=== PATIENT | male | born 1970 | race Caucasian/White ===

== ENCOUNTER → 2018-05-10 15:17 | Outpatient (CLI) | payer OTHER, SELFPAY | PROVIDERS: Family Provider Family Medicine; PCP Family Medicine; Referring Provider Physician Assistant; Visit Provider Physician Assistant | DX: J02.9 Acute pharyngitis, unspecified (principal) | CPT/HCPCS: 87077; 87081 ==

== ENCOUNTER → 2020-01-24 | Outpatient (CLI) | payer OTHER, SELFPAY ==
--- NOTE | 2020-01-24 11:24 | COLBX_PTH ---
PATIENT: ABIOLA ALEXIS LOC: [facility] U#:[id number] AGE/SX: 49/M ROOM: RE01/24/[address]: Dr. Radu Pearson MD : 1970 BED: DIS: 01/24/2020 SPEC #: [id number] RECD: 01/24/20 14:51 STATUS: [place] BLACK #: [id number] GUICHO: 01/24/20 11:[address]: Radu Pearson DEPT: SURGICAL PATHOLOGY RECD BY: Jes Hu ENTERED: 01/25/20 14:18 SP TYPE: COLON BX OTHR DR: Dr. Heriberto Casey MD [facility] Tissues: A - Ileum, NOS B - COLON BIOPSY Procedures: Surgery Specimen Level IV HEADER OPERATION: Colonoscopy with biopsy PRE-OP DIAGNOSIS: History of Crohn's TISSUE SUBMITTED: A - Biopsy terminal ileum, rule out Crohn's, B - Biopsy right and left colon, rule out microscopic colitis MICROSCOPIC DIAGNOSIS A. Terminal ileum, biopsy: Fragments of small intestinal mucosa, no pathologic diagnosis. B. Right and left colon, biopsy: Fragments of colonic mucosa, no pathologic diagnosis. SJ:wayne 01/26/20 MICROSCOPIC DESCRIPTION Slides are reviewed. GROSS DESCRIPTION A - Received in fixative is one container labeled with the patient's name and designated terminal ileum. The specimen consists of multiple irregular fragments of light fuentes soft tissue that in aggregate measure 1.5 x 0.5 x 0.1 cm. The specimen is totally submitted in one cassette. B - Received in fixative is one container labeled with the patient's name and designated right and left colon biopsy. The specimen consists of multiple irregular fragments of light fuentes soft tissue that in aggregate measure 2.5 x 0.8 x 0.1 cm. The specimen is totally submitted in one cassette. / AM:wayne 01/25/20 TC:4 CPT: 81404 x2
== END | disposition home or self-care (01) ==
LOC: LABSPEC 15:04
PROVIDERS: PCP Family Medicine; Referring Provider Internal Medicine Gastroenterology; Visit Provider Internal Medicine Gastroenterology
DX: K50.90 Crohn's disease, unspecified, without complications (principal)
CPT/HCPCS: 88305

== ENCOUNTER → 2020-01-28 11:04 | Outpatient (CLI) | payer OTHER, SELFPAY ==
[2018-05-09 11:40] VITALS: BMI 30.1
== END ==
PROVIDERS: PCP Family Medicine; Referring Provider Internal Medicine Gastroenterology; Visit Provider Internal Medicine Gastroenterology
DX: K50.90 Crohn's disease, unspecified, without complications (principal)
CPT/HCPCS: 36415

== ENCOUNTER 2020-10-09 08:30 | Outpatient (RCR) | payer OTHER, SELFPAY ==
--- NOTE | 2020-07-20 12:38 | HP.OTEVAL_ITS ---
Patient's Visit Information ABIOLA ALEXIS is a 50 year old M, referred to Occupational Therapy by JEANNIE MENDOZA, with a diagnosis of right biceps tendon rupture. Date of Evaluation: 07/19/20 Occupational Therapist: Jeannie Duffy, DENG/Julian, CHT - Subjective This 50 year old male was seen for OT eval with dx of right biceps tendon rupture s/p repair. pt states on Jun 03 while moving frig-he felt a pop in his arm- biceps did not appear disfigured so pt did not go to the dr until about two weeks after. Dr confirmed pt suffered rupture- sx was on Jul 06 with distal biceps tendon repair. pt arrives 1 week 6 days s/p from distal biceps tendon repair - pt has concerns with wrist and limited finger and thumb ROM. pt is unable to straighten fingers or ext. thumb. pt is right handed - Pain right elbow 4 Pain Intensity Range: 1, 4 - ROM Elbow: right -65/140 (maintain precuations) left +10/145 Forearm: right passive full supination/pronation left 90/90 Wrist: right 50/45 left 80/75 ROM Comments: right pronation is wFL. pronation slow and can get to N- therapist can feel initiation of supination no right thumb ext ability. no MCP ext ability. question radial nerve involvement - Strength Attendant Lodging Facilities: right NT left 115# Lateral Pinch: rithg NT left 22# Tripod Pinch: right NT left 24# Strength Comments: will test strength at later date - Edema Other: right forearm 30cm left 29cm - Sensation Sensation Comments: denies - Quick DASH-Disab of Arm,Shoulder& Hand Quick DASH Score: 68.3325 - Goals Goal:100% adherence to protocol: Yes Comment: Dr. Biswas's biceps tendon protocol Goal:Daily scar massage when approriate: Yes Goal:ROM equal to unaffected hand: Yes Comment: biceps/ foearm, finger and thumb Goal:Attendant Lodging Facilities/Pinch strength at least 75% of unaffected hand: Yes Goal:No pain with affected hand use: Yes Goal:Full use of affected hand in daily activities including: Yes Goal:Decrease scar hypersensitivity: Yes - Rehabilitation General Assessment: pt 1 week 6 days from distal biceps tendon repair- pt demo with healed incision- wrist extension, pt unable to extend fingers or thumb. pt demo with supination intact (keeping repair protected) appears to have radial nerve involvement following biceps tendon repair. Pt demo with limitations following repair of distal biceps increasing need of assist with ADLS and IADLS. Pt would benefit from skilled OTR/L, CHT services 1-2xweek for 8weeks to recover pt back to PLOF. Today therapist ed. Pt on Dr. Torres distal biceps repair. Instructed pt in s/p 10-14 day instructions. Pt demo understanding of protocol and ex. Therapist ed. Pt on thumb and finger PROM- and holding MCP at 0 allowing for right digit extension of PIP allowing for PIP flex/ and extension. Pt demo understanding of protocol adding in finger and thumb PROM and agree to POC. Rehabilitation Potential: Good - Anticipated Interventions A/AAROM/PROM, Strengthening, Edema Control, Scar Care, Modalities, Orthoses, Joint Protection/Energy Conservation, Ergonomic Education - Visit Plan Frequency: 1-2x /Week Duration: 2 Months General Plan: 0-7 days post op. PROM elbow flex with forearm in Neutral with active assisit extension to limits of brace. PROM pronation/supination with elbow in full passive flexion. -edema control. 10-14 days postop. edema control. above PROM exercises. 10-14 days postop. (48-72 hours) after suture removal may initiate scar mobilization, desensitization. Elbow hinge splint with extnsion blocked at 65. dynamic flexion assist tension is set to bring the elbow resting in 90* flexion. *initiate Early controlled Passive Motion program. 1. In elbow hinge splint with dynamic flexion assist, 4-6x day 5-10 repetitions patient instructed to straighten the elbow to the limits of the splint, and allow the dynamic flecion to bring the elbow passively back into flexion. 2. 4x a day pt instructed with arm supported on pillow to unfasten straps of elbow hinge splint and perform: 10 reps Passive elbow flexion with forearm in neutral with active assist extension to the limits of the splint. 10 reps passive pronatio/supination with elbow in full passive flexion. IF pt having difficulty performing these exercises in the splint and is compliant they can be instructed on how to perform passive flexion exercis out of the splint with extionsion limited to 90*. In splint initiate active shoulder protration,retraction and shrugs. 3-6 weeks post-op. cont above exercises. week 3 adjust extension block 50*. week 4 adjust extension block 35*. week 5 adjust extension block 20*. week 6 adjust extension block 10*. 6 weeks post-op. D/C elbow hinge orthosis at end of 6 weeks. begin ACTIVE ROM of elbow, forearm and wrist in all planes of motion. Continue PROM of elbow flextion if flexion is limited. continue PROM of forearm pronation/supination if Passive motion is limited. Passive forearm pronation/supination can now be performed with elbow at 90. 7 weeks post-op. PROM initiated for elbow extension with the forearm in neutral. (this may include heat and stretch and gentle extension stretch with 1-3# weight if needed). 8 weeks post-op. Begin controlled progressive strengthening program for the elbow, forearm, wrist and hand Slowly increase weight . if passive elbow extension is limited initiate clinic CPM with forearm in neutral - If passive pronation/supination is limited initiate serial static/dynamic splinting to improve passive rotation.,. 10 weeks post-op. cont with PRE. obtain chemical dependency professional and pinch strength measurments. 12 weeks post-op. PRE restricted to 20# until 16 weeks ( 4 months post-op). 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 16 weeks post-op. pt may return to all activities with no restrictions TEXT: Thank you for the opportunity to evaluate your patient. For Medicare and Medicare HMO plans, please review the plan of care and approve it. It will need to be FAXED BACK to us at [phone] for Medicare purposes. Please let me know if there are questions or concerns regarding this plan of care. Physician Signature: Date:
--- NOTE | 2020-08-04 12:13 | OTREVAL_ITS ---
ANNITA MENDOZA, It has been my pleasure to treat ABIOLA ALEXIS over the last 5 visits for right biceps tendon rupture. Please see the progress note below for an update on the occupational therapy plan of care! Subjective: pt is 4 weeks 1 day s/p distal biceps tendon- pain on around (radial head and extensor mech) of right forearm NO biceps pain or pain around the incision. Forearm ROM is still tight and painful ? therapist ensured pt was keeping elbow with full flex when pt is working with PROM of the forearm. Pt demo understanding. Objective/Function: right elbow flex 145 ext -35 (following precautions of protocol) passive forearm supination 65/65. Pt continues to struggle with forearm passive sup/pronation due to pain and tightness-. PT continues to struggle with radial nerve innervated muscle groups -distal to the ECR. Plan Frequency: 1x/Week Duration: 2 Months Plan: cont to follow protocol. week 6 D/C elbow hinge orthosis. Begin AROM of elbow.forearm wrist in all plans. continue PROMpronation/supination if passive motion is limited,. Passive forearm supination pronation can be performed with elbow at 90* Goals - Goals Patient Goals: Regain Mobility, Regain Strength, Improve Fine Motor Skills, Use Hand/Wrist/Arm Normally Again Goal:100% adherence to protocol: Yes Goal:Daily scar massage when approriate: Yes Goal:ROM equal to unaffected hand: Yes Goal:Computer Laboratory Technician/Pinch strength at least 75% of unaffected hand: Yes Goal:No pain with affected hand use: Yes Goal:Full use of affected hand in daily activities including: Yes Goal:Decrease scar hypersensitivity: Yes Anticipated Interventions Anticipated Interventions: A/AAROM/PROM, Strengthening, Edema Control, Scar Care, Modalities, Orthoses, Joint Protection/Energy Conservation, Ergonomic Education Please do not hesitate to contact me at [phone] by phone or if you have questions or concerns regarding this new plan of care! Sincerely, Annita Duffy, MJR/L, CHT
--- NOTE | 2020-08-11 12:03 | HP.OTREVAL ---
ANNITA MENDOZA, It has been my pleasure to treat ABIOLA ALEXIS over the last 6 visits for right biceps tendon rupture. Please see the progress note below for an update on the occupational therapy plan of care! Subjective: pt is 5 weeks s/p from distal biceps tendon repair-. pt continues to have pain throughout extensor mech. 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 Pt continues to struggle with forearm passive sup/pronation due to pain and tightness-. PT continues to struggle with radial nerve innervated muscles and Posterior Interosseous Nerve (PIN) Plan Frequency: 1x/Week Duration: 2 Months Plan: cont to follow protocol. week 6 D/C elbow hinge orthosis. Begin AROM of elbow.forearm wrist in all plans. continue PROMpronation/supination if passive motion is limited,. Passive forearm supination pronation can be performed with elbow at 90* Goals - Goals Patient Goals: Regain Mobility, Regain Strength, Improve Fine Motor Skills, Use Hand/Wrist/Arm Normally Again Goal:100% adherence to protocol: Yes Goal:Daily scar massage when approriate: Yes Goal:ROM equal to unaffected hand: Yes Goal:Air Pollution Analyst/Pinch strength at least 75% of unaffected hand: Yes Goal:No pain with affected hand use: Yes Goal:Full use of affected hand in daily activities including: Yes Goal:Decrease scar hypersensitivity: Yes Anticipated Interventions Anticipated Interventions: A/AAROM/PROM, Strengthening, Edema Control, Scar Care, Modalities, Orthoses, Joint Protection/Energy Conservation, Ergonomic Education Please do not hesitate to contact me at [phone] by phone or if you have questions or concerns regarding this new plan of care! Sincerely, Annita Duffy, OTR/L, CHT
== END 2020-10-09 19:00 | disposition home or self-care (01) ==
LOC: OT 08:30
PROVIDERS: PCP Internal Medicine
DX: S46.211D Strain of muscle, fascia and tendon of other parts of biceps, right arm, subsequent encounter (principal)
CPT/HCPCS: 97035; 97110; 97166; 97530